=== PATIENT | male | born 1950 | race Caucasian/White ===

== ENCOUNTER → 2018-05-24 08:42 | Outpatient (REF) | payer OTHER, SELFPAY ==
[2018-05-24 20:51] LABS: Anion Gap 11.8 mmol/L (3-11); BUN 22 mg/dL (7-18); CO2 23.2 mmol/L (21.0-32.0); CREATININE 1.17 mg/dL (0.70-1.30); Calcium 8.7 mg/dL (8.5-10.1); Chloride 103 mmol/L (98-107); Glucose 166 mg/dL (70-100); Potassium 5.5 mmol/L (3.5-5.1); Sodium 138 mmol/L (136-145)
== END ==
LOC: NCHCN 08:42
PROVIDERS: PCP Nurse Practitioner Family; Visit Provider Nurse Practitioner Family
DX: E11.9 Type 2 diabetes mellitus without complications (principal); G89.4 Chronic pain syndrome; M51.36 Other intervertebral disc degeneration, lumbar region; K21.9 Gastro-esophageal reflux disease without esophagitis; R19.5 Other fecal abnormalities
CPT/HCPCS: 80048

== ENCOUNTER 2018-11-21 12:21 | Outpatient (REF) | payer OTHER, SELFPAY ==
[2018-11-21 21:41] LABS: ALT 26 U/L (12-78); AST 23 U/L (15-37); Albumin 3.6 g/dL (3.4-5.0); Alkaline Phosphatase 72 U/L (46-116); Anion Gap 13.4 mmol/L (3-11); BUN 26 mg/dL (7-18); Bilirubin, Total 0.4 mg/dL (0.2-1.0); CO2 23.6 mmol/L (21.0-32.0); Calcium 9.1 mg/dL (8.5-10.1); Chloride 103 mmol/L (98-107); Cholesterol 143 mg/dL (50-200); Glucose 170 mg/dL (70-100); HDL Cholesterol 37 mg/dL (40-60); LDL CHOLESTEROL 77 mg/dL (<100); Potassium 5.1 mmol/L (3.5-5.1); Sodium 140 mmol/L (136-145); Total Protein 6.8 g/dL (6.4-8.2); Triglyceride 131 mg/dL (30-150)
== END 2018-11-21 12:41 ==
LOC: NCHCN 12:21
PROVIDERS: PCP Nurse Practitioner Family; Visit Provider Nurse Practitioner Family
DX: E11.9 Type 2 diabetes mellitus without complications (principal); E87.5 Hyperkalemia; G89.4 Chronic pain syndrome; G25.0 Essential tremor
CPT/HCPCS: 80053; 80061; 83721

== ENCOUNTER 2019-05-09 08:26 | Outpatient (REF) | payer OTHER, SELFPAY ==
[2019-05-09 21:37] LABS: COMMENT (LAB VIEW ONLY) 146.15 mg/dL; Microalb ug/mg Crea 8.9 ug/mg Cr
== END 2019-05-09 08:46 ==
LOC: NCHCN 08:26
PROVIDERS: PCP Nurse Practitioner Family; Visit Provider Nurse Practitioner Family
DX: E11.9 Type 2 diabetes mellitus without complications (principal)
CPT/HCPCS: 82043; 82570

== ENCOUNTER 2019-10-23 09:52 | Outpatient (REF) | payer OTHER, SELFPAY ==
[2019-10-23 22:21] LABS: Anion Gap 12.5 mmol/L (3-11); BUN 20 mg/dL (7-18); CO2 23.5 mmol/L (21.0-32.0); CREATININE 1.13 mg/dL (0.70-1.30); Calcium 9.4 mg/dL (8.5-10.1); Chloride 104 mmol/L (98-107); Glucose 147 mg/dL (74-106); Magnesium 1.6 mg/dL (1.8-2.4); Potassium 5.1 mmol/L (3.5-5.1); Sodium 140 mmol/L (136-145); Vitamin B12 174 pg/mL (193-986)
== END 2019-10-23 10:12 ==
LOC: NCHCN 09:52
PROVIDERS: PCP Nurse Practitioner Family; Visit Provider Nurse Practitioner Family
DX: E11.9 Type 2 diabetes mellitus without complications (principal); I10 Essential (primary) hypertension; K21.9 Gastro-esophageal reflux disease without esophagitis; G25.0 Essential tremor; Z79.899 Other long term (current) drug therapy
CPT/HCPCS: 80048; 82607; 83735

== ENCOUNTER 2020-02-11 15:11 | Outpatient (REF) | payer OTHER, SELFPAY ==
[2020-02-11 21:11] LABS: Hemoglobin A1C 7.1 % (3.8-5.6)
[2020-02-11 21:33] LABS: Magnesium 1.8 mg/dL (1.8-2.4); Vitamin B12 616 pg/mL (193-986)
== END 2020-02-11 15:31 ==
LOC: NCHCN 15:11
PROVIDERS: PCP Nurse Practitioner Family; Visit Provider Nurse Practitioner Family
DX: E11.9 Type 2 diabetes mellitus without complications (principal); E83.42 Hypomagnesemia; E53.8 Deficiency of other specified B group vitamins
CPT/HCPCS: 82607; 83036; 83735

== ENCOUNTER 2020-05-04 21:44 | Outpatient (REF) | payer OTHER, SELFPAY ==
[2020-05-04 22:07] LABS: COMMENT (LAB VIEW ONLY) 56.44 mg/dL; Microalb ug/mg Crea 15.1 ug/mg Cr
== END 2020-05-04 22:04 ==
LOC: NCHCN 21:44
PROVIDERS: PCP Nurse Practitioner Family; Visit Provider Nurse Practitioner Family
DX: E11.9 Type 2 diabetes mellitus without complications (principal)
CPT/HCPCS: 82043; 82570

== ENCOUNTER 2020-11-08 18:27 | Outpatient (REF) | payer OTHER, SELFPAY ==
[2020-11-08 20:59] LABS: HCT 45.9 % (40.0-50.0); HGB 15.1 g/dL (13.5-17.5); MCH 31.4 pg (27.0-33.0); MCHC 32.9 % (32.0-36.0); MCV 95.4 fL (80-95); MPV 12.7 fL (8.0-11.0); Platelet Count 224 10^3/uL (130-400); RBC 4.81 10^6/uL (4.36-5.78); RDW 12.9 % (11.8-14.1); RDW-SD 45.1 fL
[2020-11-08 21:17] LABS: Anion Gap 10.4 mmol/L (3-11); BUN 22 mg/dL (7-18); CO2 24.6 mmol/L (21.0-32.0); CREATININE 1.29 mg/dL (0.70-1.30); Calcium 9.4 mg/dL (8.5-10.1); Chloride 101 mmol/L (98-107); Estimated GFR 55.06 (mL/min/1.73m2); Glucose 144 mg/dL (74-106); Potassium 4.7 mmol/L (3.5-5.1); Sodium 136 mmol/L (136-145); TSH 1.69 uIU/mL (0.36-3.74)
== END 2020-11-08 18:47 ==
LOC: NCHCN 18:27
PROVIDERS: PCP Nurse Practitioner Family; Visit Provider Nurse Practitioner Family
DX: R53.83 Other fatigue (principal); I10 Essential (primary) hypertension; E11.9 Type 2 diabetes mellitus without complications
CPT/HCPCS: 80048; 85027; 84443

== ENCOUNTER 2021-05-16 11:33 | Outpatient (REF) | payer OTHER, SELFPAY ==
[2021-05-16 16:37] LABS: COMMENT (LAB VIEW ONLY) 59.68 mg/dL; Microalb ug/mg Crea 7.2 ug/mg Cr
== END 2021-05-16 11:34 | disposition home or self-care (01) ==
LOC: NCHCN 11:33
PROVIDERS: PCP Nurse Practitioner Family; Visit Provider Nurse Practitioner Family
DX: E11.9 Type 2 diabetes mellitus without complications (principal); I10 Essential (primary) hypertension
CPT/HCPCS: 82043; 82570

== ENCOUNTER 2022-01-05 18:26 | Outpatient (REF) | payer OTHER, SELFPAY ==
[2022-01-05 15:42] LABS: Hemoglobin A1C 8.7 % (<5.7)
[2022-01-05 15:49] LABS: Anion Gap 10.7 mmol/L (3-11); BUN 22 mg/dL (7-18); CO2 23.3 mmol/L (21.0-32.0); CREATININE 1.2 mg/dL (0.70-1.30); Calcium 9.4 mg/dL (8.5-10.1); Chloride 106 mmol/L (98-107); Estimated GFR 59.68 (mL/min/1.73m2); Glucose 168 mg/dL (74-106); Potassium 5.3 mmol/L (3.5-5.1); Sodium 140 mmol/L (136-145)
== END 2022-01-05 18:27 | disposition home or self-care (01) ==
LOC: NCHCN 18:26
PROVIDERS: PCP Nurse Practitioner Family; Visit Provider Nurse Practitioner Family
DX: E11.9 Type 2 diabetes mellitus without complications (principal); I10 Essential (primary) hypertension
CPT/HCPCS: 80048; 83036

== ENCOUNTER 2022-08-21 18:25 | Outpatient (REF) | payer OTHER, SELFPAY ==
[2022-08-21 15:12] LABS: HCT 45.4 % (40.0-50.0); MCH 31.1 pg (27.0-33.0); MCV 94 fL (80-95); MPV 12.5 fL (8.0-11.0); Platelet Count 274 10^3/uL (130-400); RBC 4.83 10^6/uL (4.36-5.78); RDW 12.5 % (11.8-14.1); RDW-SD 43.2 fL; WBC 7.18 10^3/uL (4.4-10.8)
[2022-08-21 15:31] LABS: ALT 30 U/L (16-63); AST 35 U/L (15-37); Albumin 4.1 g/dL (3.4-5.0); Alkaline Phosphatase 91 U/L (46-116); Anion Gap 12.9 mmol/L (3-11); BUN 27 mg/dL (7-18); Bilirubin, Total 0.3 mg/dL (0.2-1.0); CO2 21.1 mmol/L (21.0-32.0); CREATININE 1.5 mg/dL (0.70-1.30); Calcium 9.5 mg/dL (8.5-10.1); Chloride 105 mmol/L (98-107); Estimated GFR 49.16 (mL/min/1.73m2); Glucose 120 mg/dL (74-106); Lipase 108 U/L (73-393); Potassium 5.5 mmol/L (3.5-5.1); Sodium 139 mmol/L (136-145); TSH 1.81 uIU/mL (0.36-3.74); Total Protein 7.4 g/dL (6.4-8.2)
== END 2022-08-21 18:26 | disposition home or self-care (01) ==
LOC: NCHCN 18:25
PROVIDERS: PCP Nurse Practitioner Family; Visit Provider Nurse Practitioner Family
DX: R07.9 Chest pain, unspecified (principal); R10.9 Unspecified abdominal pain
CPT/HCPCS: 80053; 83690; 85027; 84443

== ENCOUNTER 2022-10-19 16:30 | Outpatient (REF) | payer OTHER, SELFPAY ==
[2022-10-19 21:09] LABS: Anion Gap 10.1 mmol/L (3-11); BUN 26 mg/dL (7-18); CO2 22.9 mmol/L (21.0-32.0); CREATININE 1.5 mg/dL (0.70-1.30); Calcium 9.5 mg/dL (8.5-10.1); Chloride 101 mmol/L (98-107); Estimated GFR 49.16 (mL/min/1.73m2); Glucose 132 mg/dL (74-106); Potassium 5.3 mmol/L (3.5-5.1); Sodium 134 mmol/L (136-145)
== END 2022-10-19 16:31 | disposition home or self-care (01) ==
LOC: NCHCN 16:30
PROVIDERS: PCP Nurse Practitioner Family; Visit Provider Family Medicine
DX: I10 Essential (primary) hypertension (principal)
CPT/HCPCS: 80048

== ENCOUNTER 2023-03-22 09:55 | Outpatient (REF) | payer OTHER, SELFPAY ==
[2023-03-22 15:53] LABS: Hemoglobin A1C 8.6 % (<5.7)
[2023-03-22 16:17] LABS: Anion Gap 11.2 mmol/L (3-11); BUN 20 mg/dL (7-18); CO2 21.8 mmol/L (21.0-32.0); CREATININE 1.3 mg/dL (0.70-1.30); Calcium 9.6 mg/dL (8.5-10.1); Calculated LDL 119 mg/dL (<100); Chloride 104 mmol/L (98-107); Cholesterol 205 mg/dL (<200); Estimated GFR 58.01 (mL/min/1.73m2); Glucose 208 mg/dL (74-106); HDL Cholesterol 40 mg/dL (40-60); Potassium 4.7 mmol/L (3.5-5.1); Sodium 137 mmol/L (136-145); Triglyceride 231 mg/dL (<150)
[2023-03-26 11:35] LABS: Hepatitis C Ab w Rflx HCV PCR Negative (Negative)
== END 2023-03-22 09:56 | disposition home or self-care (01) ==
LOC: NCHCN 09:55
PROVIDERS: PCP Nurse Practitioner Family; Visit Provider Nurse Practitioner Family
DX: I10 Essential (primary) hypertension (principal); E11.9 Type 2 diabetes mellitus without complications; E78.5 Hyperlipidemia, unspecified; Z11.59 Encounter for screening for other viral diseases
CPT/HCPCS: 80048; 80061; 86803; 83036

== ENCOUNTER 2023-03-29 15:46 | Outpatient (REF) | payer OTHER, SELFPAY ==
[2023-03-29 15:36] LABS: COMMENT (LAB VIEW ONLY) 88.92 mg/dL; Microalb ug/mg Crea 3.8 ug/mg Cr
== END 2023-03-29 15:47 | disposition home or self-care (01) ==
LOC: NCHCN 15:46
PROVIDERS: PCP Nurse Practitioner Family; Visit Provider Nurse Practitioner Family
DX: E11.9 Type 2 diabetes mellitus without complications (principal)
CPT/HCPCS: 82043; 82570

== ENCOUNTER 2023-12-27 13:13 | Outpatient (REF) | payer OTHER, SELFPAY ==
[2023-12-27 15:29] LABS: Hemoglobin A1C 7.3 % (<5.7)
== END 2023-12-27 13:14 | disposition home or self-care (01) ==
LOC: NCHCN 13:13
PROVIDERS: PCP Nurse Practitioner Family; Referring Provider Nurse Practitioner Family; Visit Provider Nurse Practitioner Family
DX: E11.9 Type 2 diabetes mellitus without complications (principal)
CPT/HCPCS: 83036

== ENCOUNTER → 2024-05-15 11:34 | Outpatient (BNVA) | payer OTHER, SELFPAY | PROVIDERS: PCP Nurse Practitioner Family; Referring Provider Nurse Practitioner Family; Visit Provider Physical Therapy Assistant | DX: Z12.11 Encounter for screening for malignant neoplasm of colon (principal); Z86.010 Personal history of colon polyps ==

== ENCOUNTER 2024-06-06 06:03 | Day surgery (SDC) | payer OTHER, SELFPAY ==
--- NOTE | 2024-06-05 11:05 | COLE_ITS ---
Date of service: 06/06/24 Time of Service: 08:25 Colonoscopy Report Date of procedure: 06/06/24 Pre-op diagnosis general: villous adenoma of sigmoid/recto sigmoid colon oin 2020 Post-op diagnosis procedure note: other (Severe álvarez diverticula) Surgeon: Jyoti Meehan Anesthesia Type: General:No Airway Estimated blood loss (mL): 0 Pathology: none sent Complications: None Disposition: same day Prep: Miralax/Dulcolax Retraction Time: 15 Procedure Description: After informed consent was obtained, explaining risks of the procedure, including but not limits to: bleeding, infections, complications of anesthesia, perforations (which may require antibiotics and /or surgery and stay in the hospital), and abdominal pain/cramping. The patient was taken to the procedure room and placed in a left decubitous position. Monitors were applied and a time out was done. The patients name, date of , procedure, allergies to medications and metal in their body was reviewed. The patient was then sedated. Once sedated and comfortable a rectal exam was done. External exam was normal. Internal exam revealed a normal sphincter tone and no palpable masses. The prostate is enlarged The previously lubricated Olympus scope was then introduced (see RN notes for scope number) and retrofelexed. No internal hemorrhoids were identified. The scope was then advanced to the cecum without difficulty. The TI and appendiceal orifice were identified. The scope was then slowly retracted over 15 minutes back into the rectum. Polyps: no. Diverticula: pt had a large amount of large mouthed diverticula do carry all the way over to the cecum. There were no signs of active bleeding or infection. . The mucosa is pink and healthy w/ a normal vascular pattern. The scope was removed, and the patient was woken up and taken back to Same day surgery in stable condition. There is a significant amount of inspissated stool that does obscure view. Lesions less than 5 mm may not have been visualized today. Because of the severity of his diverticular disease I would not recommend any more colonoscopies. The patient tolerated the procedure well and there were no immediate complications. Follow up: The patient should does not require any further screening colonoscopies,, unless they develop changes in bowel habits or other new gastrointestinal complaints. [place] Bowel Prep [place] Bowel Prep Right Colon: 2 Left Colon: 2 Transverse Colon: 2 Total Score: 6
--- NOTE | 2024-06-05 11:09 | PDOC.DSDIS_ITS ---
Date of service: 06/06/24 Time of Service: 08:33 Discharge Plan Disposition Patient Disposition: Home Condition: Good Discharge Details Reason For Visit: Colon scope Attending Provider: Jyoti Meehan Primary Care Provider: Sunshine Kim Home Meds and New Rx's Prescriptions: Continued Invokana 300 mg tablet 300 mg PO DAILY Patient Comments: said it has been a couple of months due to cost, PCP involved lisinopril 20 mg tablet 20 mg PO DAILY lorazepam 0.5 mg tablet 0.5 mg PO DAILY PRN magnesium oxide 400 mg magnesium tablet 400 mg PO DAILY meloxicam 7.5 mg tablet 7.5 mg PO BID Patient Comments: reports hasnt taken for months due to upset stomach metformin 1,000 mg tablet 1,000 mg PO BID polyethylene glycol 3350 [Miralax] 17 gram/dose powder 17 g PO DAILY PRN mirtazapine 15 mg tablet 30 mg PO QHS omeprazole 20 mg capsule,delayed release(DR/EC) 20 mg PO BID primidone 50 mg tablet 100 mg PO BID tirzepatide 2.5 mg/0.5 mL pen injector 2.5 mg subcut QWEEK mecobalamin (vitamin B12) 1,000 mcg tablet,chewable 1,000 mcg PO DAILY Discontinued bisacodyl [Dulcolax (bisacodyl)] 5 mg tablet,delayed release (DR/EC) 5 mg PO ONCE Qty: 4 0RF Rx Instructions: Take per colonoscopy instructions provided by ordering providers office Discharge Instructions Additional Instructions: DSU Colonoscopy Post- Op Instructions Instructions for Everyone who is given Anesthesia: For your safety, please do the following for the next twenty-four (24) hours: *Do Not operate a motor vehicle (car, truck, motorcycle, etc.) *Do Not drink alcoholic beverages or use any recreational drugs for the first 24 hours or while taking pain medications. The medications in your body may have a reaction that can be dangerous. *Do Not make any important decisions or sign any important papers. Findings: Severe diverticular disease. Make sure you are moving your bowels and not straining to go to the bathroom. If you find you are having with problems with constipation or straining then it is recommended you start a daily fiber product such as Metamucil. Follow up: No more repeat colonoscopies are required 1. No lifting over 20 pounds or strenuous activity for the first 24 hours after your procedure. After 24 hours there are no restrictions on your activity but you may feel fatigued for a few days. 2. After you arrive home you may have a light meal and return to your normal diet as you can tolerate it without feeling sick to your stomach. 3. You may have a bloated, gaseous feeling in your belly (abdomen) after a colonoscopy. Passing gas and belching will help. Walking or lying down on your left side with your knees flexed may relieve the discomfort. Call the office at [phone] (Office) or [phone] (Hospital) right away if you notice any of the following: a.Vomiting of blood or ?coffee ground stools?. b.Rectal bleeding 1Tbsp, blood clots or continuous bleeding. c.Severe belly (abdominal) pain. d.A hard distended belly (abdomen) and an inability to pass gas. 4. Please don?t expect to have a normal BM (bowel movement) for 2-3 days after your procedure. 5. If there are questions regarding the findings of your procedure, please contact your doctor 6. If you are unable to contact your doctor with a problem, contact the hospital at [phone]. 7. Continue all your regular medications unless directed otherwise. I understand the above instructions and have no questions. Signature of Patient or Adult Escort Name of Responsible Adult Escort Signature of Nurse Date/Time Activity:: see above Diet:: see above Discharge Orders Discharge Orders: Discharge Order (Routine); Ordered 06/06/24 Ordered By: Jyoti Meehan DS: Diagnosis Discharge Diagnosis (1) Villous adenoma of left colon: Status: Acute (2) COPD (chronic obstructive pulmonary disease): Status: Chronic (3) Essential hypertension: (4) HLD (hyperlipidemia): (5) Type 2 diabetes mellitus: (6) Glaucoma: (7) GERD (gastroesophageal reflux disease): (8) Constipation: (9) Hemorrhoids: (10) Tubulovillous adenoma: Asessment and Plan: The patient is seen and examined after their colonoscopy.? The patient has been able to pass gas.? They are not having abdominal pain.? They have been able to tolerate liquids and a snack.? They do not have any nausea or vomiting.? They are not having any chest pain or shortness of breath.??? They are not having any rectal bleeding. Their vital signs have been stable-see nursing notes. We discussed findings during their colonoscopy, and any biopsies that were done/polyps that were removed. The patient will be sent a letter with any biopsy results, and when to repeat the colonoscopy.-see discharge instructions. Patient was given explicit instructions to follow-up regarding colonoscopy-refer to discharge instructions.? We reviewed resumption of medications. Patient verbalized understanding and discharged in stable and satisfactory condition- See nursing notes. (11) Diverticular disease of large intestine: Status: Acute (12) Pancolonic diverticulosis: Status: Acute
--- NOTE | 2024-06-06 05:51 | ANES.PREOP_ITS ---
General Info Date of Service Date Performed: 06/06/24 Height: 5 ft 9 in Weight: 88.451 kg Body Mass Index (BMI): 28.8 Surgical Procedure: Operation Date: 06/06/24 07:35 Proposed Procedure Side Surgeon pamela Meehan, DO Meds Allergies and Home Medications Allergies Allergy/AdvReac Type Severity Reaction Status Date / Time No Known Allergies Allergy Verified 06/06/24 06:35 Home Medication ?Medication ?Instructions ?Recorded canagliflozin 300 mg tablet 300 mg PO DAILY 05/15/24 (Invokana) lisinopril 20 mg tablet 20 mg PO DAILY 05/15/24 lorazepam 0.5 mg tablet 0.5 mg PO DAILY PRN 05/15/24 magnesium oxide 400 mg PO DAILY 05/15/24 mecobalamin (vitamin B12) 1,000 1,000 mcg PO DAILY 05/15/24 mcg chewable tablet meloxicam 7.5 mg tablet 7.5 mg PO BID 05/15/24 metformin 1,000 mg tablet 1,000 mg PO BID 05/15/24 mirtazapine 15 mg tablet 30 mg PO QHS 05/15/24 omeprazole 20 mg capsule,delayed 20 mg PO BID 05/15/24 release polyethylene glycol 3350 17 17 g PO DAILY PRN 05/15/24 gram/dose oral powder (Miralax) primidone 50 mg tablet 100 mg PO BID 05/15/24 tirzepatide 2.5 mg/0.5 mL 2.5 mg subcut QWEEK 05/15/24 subcutaneous pen injector Current Visit Medications: Current Medications Generic Name Dose Route Start Last Admin Trade Name Manuelq PRN Reason Stop Dose Admin Hyoscyamine Sulfate 0.125 mg 06/06/24 11:04 Hyoscyamine 0.125 Mg Sl/Oral/Chew SL 07/06/24 11:03 DIRECTED PRN Ringer's Solution 1,000 mls @ 80 mls/hr 06/06/24 06:00 IV 06/06/24 23:59 [facility] IV Miscellaneous Supplies 1 each 06/06/24 06:00 Iv Access IV 06/06/24 23:59 DIRECTED LENNIE Ondansetron HCl 4 mg 06/06/24 11:04 Ondansetron 4 Mg/2 Ml Vial IVP 07/06/24 11:03 Q4H PRN PRN Nausea / Vomiting Sodium Chloride 0 ml 06/06/24 06:00 Normal Saline Flush 10 Ml Syr IV 06/06/24 23:59 PRN PRN Sodium Chloride 0 ml 06/06/24 06:00 Normal Saline 10 Ml Vial IJ 06/06/24 23:59 DIRECTED PRN Sterile Water 0 ml 06/06/24 06:00 Water,Injection,Sterile 10 Ml Vial IJ 06/06/24 23:59 DIRECTED PRN PFSH Active Problems Active Problems: Problem Status Onset Code Villous adenoma of left colon Acute D37.4 COPD (chronic obstructive pulmonary disease) Chronic J44.9 Medical History Medical History (Updated 06/06/24 @ 06:42 by Natasha Garcia) History of hand fracture Hx of fracture of leg Hx of fracture of arm Tubulovillous adenoma (~02/22/21) Tubular adenoma of colon (~02/22/21) X3 Dysthymia Disorder of optic nerve Hemorrhoids Essential tremor Essential hypertension HLD (hyperlipidemia) Cervical radiculopathy Vitamin B deficiency Chronic pain syndrome Type 2 diabetes mellitus Chest pain normal stress test 2015 EF 56% GERD (gastroesophageal reflux disease) Degeneration of lumbar intervertebral disc Idiopathic osteoarthritis Glaucoma Dupuytren's disease Actinic keratosis Hypomagnesemia Pain in right acromioclavicular joint Constipation Aneurysm artery, iliac Lung nodule Pain in left foot Surgical History Surgical History (Updated 06/06/24 @ 06:42 by Natasha Garcia) Hx of facial fracture repair History of colonoscopy Tobacco Smoking/Tobacco Use Status: Former Tobacco Use Alcohol Alcohol Intake: never Substance Use Substance use: Never Substance use type: does not use Vital Signs and Lab Results Vital Signs Most Recent Vital Signs in EMR: Temp Pulse Resp BP Pulse Ox 36.5 C 72 16 141/104 H 96 06/06/24 06:29 06/06/24 06:29 06/06/24 06:29 06/06/24 06:29 06/06/24 06:29 Lab Results 06/06/24 06:50 Blood Type / Crossmatch: 2 No Data to Display Complete Blood Count: 2 No Data to Display Complete Metabolic Panel: 2 Sodium 136 mmol/L (136-145) 06/06/24 06:50 Potassium 3.8 mmol/L (3.5-5.1) 06/06/24 06:50 Chloride 101 mmol/L (98-107) 06/06/24 06:50 Carbon Dioxide 24.6 mmol/L (21.0-32.0) 06/06/24 06:50 BUN 15 mg/dL (7-18) 06/06/24 06:50 Creatinine 1.2 mg/dL (0.70-1.30) 06/06/24 06:50 Est GFR (CKD-EPI 2020) 63.46 (mL/min/1.73m2) 06/06/24 06:50 Calcium 8.5 mg/dL (8.5-10.1) 06/06/24 06:50 Glucose 210 mg/dL (74-106) H 06/06/24 06:50 Liver Function Panel: 2 No Data to Display Coagulation Panel: 2 No Data to Display Cardiac Panel: 2 No Data to Display Arterial Blood Gas: 2 No Data to Display Venous Blood Gas: 2 No Data to Display Pancreas Panel: 2 No Data to Display Thyroid Panel: 2 No Data to Display Infectious Disease: 2 No Data to Display Blood Cultures: 2 No Data to Display Toxicology Panel: 2 No Data to Display Anesthesia Assessment and Plan Anesthesia History Personal History: No History of Anesthesia Complications Family History: No Family History of Anesthesia Complications Exercise Tolerance Exercise Tolerance: Metabolic Equivalents>4 Pertinent Negatives Pertinent Negatives: No Symptoms of GERD, No Major Cardiovascular Symptoms or Complaints and No Major Pulmonary Symptoms or Complaints Cardiac & Pulmonary Exam Cardiac Exam: Normal S1/S2 Heart Sounds Pulmonary Exam: Clear Bilateral Breath Sounds Implantable Cardiac Device Does patient have a Pacemaker or an ICD?: No Airway Exam Known Difficult Airway: No Mallampati Class: 3 Mouth Opening: Normal (> 3cm) Thyromental Distance: Greater than 3 cm Neck Range of Motion: Full ROM Neck Circumference: Normal Teeth Condition: Generalized Poor Dentition (only 2 teeth right lower, not loose per pt) ASA Classification ASA Score: ASA 3 Emergency Case?: No NPO Status NPO Status: NPO Clears >2 hours, Solids >8 hours Anesthesia Plan Resuscitation Status: Full Code Anesthesia Technique: General Anesthesia Airway Planned: Natural Airway Monitors Used: Standard Monitors Preoperative Comments:: 74 y/o male with history of type 2 DM, asthma, HLD, presents for colonoscopy screening. His last screening was in 2020 and was tubular adenomatous polyps x 3 and a tubulovillous adenoma. Usual tremor is a bit more pronounced today, c/o headache 7/10. Toradol 15mg IV given at 0710. IV fluids increased. CMP ok, headache improving after Toradol.
[2024-06-06 06:29] VITALS: BP 141/104; PULSE 72; RESP 16; TEMP 36.5; O2SAT 96
[2024-06-06] MEDS: Lactated Ringers 1,000 ML 80 ML IV (06:50)
[2024-06-06 07:04] VITALS: BMI 28.8
[2024-06-06 07:17] LABS: Anion Gap 10.4 mmol/L (3-11); BUN 15 mg/dL (7-18); CO2 24.6 mmol/L (21.0-32.0); CREATININE 1.2 mg/dL (0.70-1.30); Calcium 8.5 mg/dL (8.5-10.1); Chloride 101 mmol/L (98-107); Estimated GFR 63.46 (mL/min/1.73m2); Glucose 210 mg/dL (74-106); Potassium 3.8 mmol/L (3.5-5.1); Sodium 136 mmol/L (136-145)
[2024-06-06 08:21] VITALS: BP 107/73; PULSE 66; RESP 16; TEMP 36.4; O2SAT 96
--- NOTE | 2024-06-06 08:47 | W.ANESPOSTOP ---
Postoperative Evaluation Date, Time and Location Date Performed: 06/06/24 Time Performed: 08:32 Patient Location: Day Surgery Unit Vital Signs Most Recent Imported Vital Signs: Most Recent Vital Signs Temp Pulse Resp BP Pulse Ox 36.4 C L 66 16 107/73 96 06/06/24 08:21 06/06/24 08:21 06/06/24 08:21 06/06/24 08:21 06/06/24 08:21 Pain Score Most Recent Pain Score: Most Recent Pain Score Pain Level 0 06/06/24 08:21 Assessment Mental Status: Awake (Alert & Oriented to Patient Baseline) Airway and Respiratory Function: Patent airway with normal (patient baseline) respiratory exam Cardiovascular Function: Hemodynamically Stable Hydration Status: Adequately Hydrated Nausea & Vomiting: No Nausea or Vomiting Pain: Pt. Denies Any Pain Peripheral Nerve Block: Patient did not receive a nerve block
[2024-06-06 08:54] VITALS: BP 134/84; PULSE 65; RESP 16; TEMP 36.6; O2SAT 95
== END 2024-06-06 09:17 | disposition home or self-care (01) ==
PROVIDERS: Nurse Anesthetist, Certified Registered; PCP Nurse Practitioner Family; Visit Provider Surgery
PROC: 0DJD8ZZ Inspection of Lower Intestinal Tract, Via Natural or Artificial Opening Endoscopic (ICD-10-PCS; CPT 45378; principal; 2024-06-06 07:30)
DX: Z12.11 Encounter for screening for malignant neoplasm of colon (principal); K57.30 Diverticulosis of large intestine without perforation or abscess without bleeding
CPT/HCPCS: G0105; 36415; 80048; J1885; J2001; J2371; J2704

== ENCOUNTER 2024-06-30 15:03 | Outpatient (REF) | payer OTHER, SELFPAY ==
[2024-06-30 15:49] LABS: HCT 46.1 % (40.0-50.0); HGB 15.2 g/dL (13.5-17.5); MCH 30.7 pg (27.0-33.0); MCV 93 fL (80-95); MPV 12.7 fL (8.0-11.0); Platelet Count 264 10^3/uL (130-400); RBC 4.95 10^6/uL (4.36-5.78); RDW 13.6 % (11.8-14.1); RDW-SD 46.1 fL; WBC 7.62 10^3/uL (4.4-10.8)
[2024-06-30 16:09] LABS: ALT 28 U/L (16-63); AST 33 U/L (15-37); Albumin 3.9 g/dL (3.4-5.0); Alkaline Phosphatase 123 U/L (46-116); Anion Gap 11.1 mmol/L (3-11); BUN 18 mg/dL (7-18); Bilirubin, Total 0.41 mg/dL (0.2-1.0); CO2 24.9 mmol/L (21.0-32.0); CREATININE 1.2 mg/dL (0.70-1.30); Calcium 9.4 mg/dL (8.5-10.1); Calculated LDL 88 mg/dL (<100); Chloride 103 mmol/L (98-107); Cholesterol 171 mg/dL (<200); Estimated GFR 63.46 (mL/min/1.73m2); Glucose 195 mg/dL (74-106); HDL Cholesterol 47 mg/dL (40-60); Potassium 5.1 mmol/L (3.5-5.1); Sodium 139 mmol/L (136-145); Total Protein 7.5 g/dL (6.4-8.2); Triglyceride 180 mg/dL (<150)
[2024-06-30 16:17] LABS: Hemoglobin A1C 7.9 % (<5.7)
== END 2024-06-30 15:04 | disposition home or self-care (01) ==
LOC: NCHCN 15:03
PROVIDERS: PCP Nurse Practitioner Family; Visit Provider Nurse Practitioner Family
DX: I10 Essential (primary) hypertension (principal); E11.9 Type 2 diabetes mellitus without complications
CPT/HCPCS: 80053; 80061; 85027; 83036

== ENCOUNTER 2024-07-31 10:02 | Emergency (ER) | payer OTHER, SELFPAY ==
[2024-07-31] VITALS (13 sets, daily range): BP systolic 85–132; BP diastolic 49–77; PULSE 75–87; RESP 11–20; TEMP 36.2–36.3; O2SAT 94–97
--- NOTE | 2024-07-31 10:15 | RT.EKG_ITS ---
APPROVED REPORT Exam: Resting ECG Reason for Exam: hypotension, back pain Patient Location: E HR:78 bpm ECG Measurements Heart Rate 78 AXIS MD 258 P -41 QRSd 96 QRS 43 QT 387 T 45 QTc 440 Conclusion Sinus rhythm...normal P axis, V-rate 60- 99 Prolonged MD interval...MD >220, V-rate 50- 90 Narrow complex normal sinus rhythm at a rate of 78. Normal axis. First-degree AV block MD interval 258 ms. QTc within normal limits. T wave flattening in lead III. No prior for comparison. No acut e injury pattern.
[2024-07-31] MEDS: ACETAMINOPHEN 1,000 MG/100 ML BTL 400 MG IVPB (11:04)
[2024-07-31] MEDS: oxyCODONE 5 MG TAB PO (11:05)
--- NOTE | 2024-07-31 11:06 | W.ED.GENAD ---
Discharge Plan Disposition Patient Disposition: Home Condition: Stable Discharge Details Clinical Impression: Back pain Primary Care Provider: Sunshine Kim ED Provider: Marisel Delarosa Home Meds and New Rx's Prescriptions: New prednisone 20 mg tablet 40 mg PO DAILY Qty: 10 0RF Continued Invokana 300 mg tablet 300 mg PO DAILY Patient Comments: said it has been a couple of months due to cost, PCP involved lisinopril 20 mg tablet 20 mg PO DAILY lorazepam 0.5 mg tablet 0.5 mg PO DAILY PRN magnesium oxide 400 mg magnesium tablet 400 mg PO DAILY meloxicam 7.5 mg tablet 7.5 mg PO BID Patient Comments: reports hasnt taken for months due to upset stomach metformin 1,000 mg tablet 1,000 mg PO BID polyethylene glycol 3350 [Miralax] 17 gram/dose powder 17 g PO DAILY PRN mirtazapine 15 mg tablet 30 mg PO QHS omeprazole 20 mg capsule,delayed release(DR/EC) 20 mg PO BID primidone 50 mg tablet 100 mg PO BID tirzepatide 2.5 mg/0.5 mL pen injector 2.5 mg subcut QWEEK mecobalamin (vitamin B12) 1,000 mcg tablet,chewable 1,000 mcg PO DAILY Discharge Instructions Instructions: Low Back Pain ED Additional Instructions: Follow-up with physical therapy and listing a referral Take the prednisone as prescribed Tylenol 650 every 6 hours as needed for pain May apply Voltaren or diclofenac gel which is [id number] in the area of discomfort May buy [id number] Lidoderm patches 4% and apply them over the area of discomfort Light stretching Please return should you have strength or sensation change, fever chills, changes in bowel or bladder, or any new or worsening complaints recheck your blood pressure with your primary care physician tomorrow, skip your dose of morning blood pressure medication and make sure you are drinking at least eight 8 ounce glasses of water daily. Stand Alone Forms: Physical Therapy Referral Referrals: Sunshine Kim [Primary Care Provider] - 1 day Discharge Data Discharge Date/Time-TO BE ENTERED AT DEPARTURE: 07/31/24 12:52 HPI General Date/Time Provider Initiated Documentation: 07/31/24 10:17. HPI Narrative: This 74-year-old male with history of COPD hypertension, diabetes, seizures, presents with report of back pain for the past 4 to 5 weeks. He denies any prior history of back pain and has been going to a chiropractor for intervention per patient. Denies changes in bowel or bladder, illicit drug use, strength or sensation change. Denies any groin numbness or tingling. States the pain is worsened with walking and movement. Denies any chest pain or shortness of breath. Denies any abdominal pain, nausea or vomiting. Denies history of cancer. Related Data Home Medications ?Medication ?Instructions ?Recorded ?Confirmed canagliflozin 300 mg tablet 300 mg PO DAILY 05/15/24 07/31/24 (Invokana) lisinopril 20 mg tablet 20 mg PO DAILY 05/15/24 07/31/24 lorazepam 0.5 mg tablet 0.5 mg PO DAILY PRN 05/15/24 07/31/24 magnesium oxide 400 mg PO DAILY 05/15/24 07/31/24 mecobalamin (vitamin B12) 1,000 1,000 mcg PO DAILY 05/15/24 07/31/24 mcg chewable tablet meloxicam 7.5 mg tablet 7.5 mg PO BID 05/15/24 07/31/24 metformin 1,000 mg tablet 1,000 mg PO BID 05/15/24 07/31/24 mirtazapine 15 mg tablet 30 mg PO QHS 05/15/24 07/31/24 omeprazole 20 mg capsule,delayed 20 mg PO BID 05/15/24 07/31/24 release polyethylene glycol 3350 17 17 g PO DAILY PRN 05/15/24 07/31/24 gram/dose oral powder (Miralax) primidone 50 mg tablet 100 mg PO BID 05/15/24 07/31/24 tirzepatide 2.5 mg/0.5 mL 2.5 mg subcut QWEEK 05/15/24 07/31/24 subcutaneous pen injector prednisone 20 mg tablet 40 mg (2 x 20 mg) PO DAILY #10 tabs 07/31/24 Previous Rx's ?Medication ?Instructions ?Recorded prednisone 20 mg tablet 40 mg (2 x 20 mg) PO DAILY #10 tabs 07/31/24 Allergies Allergy/AdvReac Type Severity Reaction Status Date / Time No Known Allergies Allergy Verified 07/31/24 10:08 General Stated Complaint: Nk/Back Pain VINCENZO: 3 Exam Narrative Exam Narrative: Alert and oriented 74-year-old male in no acute distress, pupils are equal, lungs clear to auscultation, cardiac rate rhythm regular, distal pulses intact, no abdominal tenderness or pulsatile mass, no CVA tenderness, tenderness with palpation along lumbar spine paraspinally and flank, alert and oriented x 4, strength and sensation intact distally Course Vital Signs Vital signs: Vital Signs Temperature 36.2 C L 07/31/24 10:03 Pulse 82 07/31/24 10:03 Respiratory Rate 16 07/31/24 10:03 Blood Pressure 116/76 07/31/24 10:03 Pulse Oximetry 94 07/31/24 10:03 Temperature 36.3 C L 07/31/24 10:19 Pulse 79 07/31/24 10:53 Pulse 81 07/31/24 10:53 Respiratory Rate 16 07/31/24 10:53 Blood Pressure 85/58 L 07/31/24 10:53 Blood Pressure Mean 66 07/31/24 10:53 Pulse Oximetry 96 07/31/24 10:53 Oxygen Delivery Method Room Air 07/31/24 10:19 Oxygen Flow Rate 0 07/31/24 10:19 Pain Level 6 07/31/24 10:03 Medical Decision Making 74-year-old male presenting with back pain for the past 4 to 5 weeks, getting worse despite going to chiropractor. Has not been evaluated by his primary care physician reportedly. Incidentally patient's blood pressure was found to be on the low end of normal in triage and therefore additional assessment was performed. Did order CT abdomen and pelvis and lumbar spine to evaluate for back pain potential etiology of hypotension. Patient was found to have normal-appearing blood work with an ever so slight decrease in his hemoglobin but no self-reported blood in stool. Patient was given breakfast and fluids and his blood pressure was 117/70 at time of discharge home. No supplemental fluid was administered during this stay and patient was encouraged to have his blood pressure rechecked by his primary care physician prior to taking his lisinopril tomorrow. Placed on prednisone for pain. Return precautions reviewed and patient expressed understanding. No clinical findings consistent with cauda equina syndrome and clinically low suspicion for discitis or epidural abscess. Quality:SDOH Health Related Social Needs: No Data to Display PFSH All Active Problems (Updated 07/31/24 @ 12:33 by HARPER Muñoz) Back pain (Acute) Pancolonic diverticulosis (Acute) Diverticular disease of large intestine (Acute) Severe PAV diverticular disease Villous adenoma of left colon (Acute) COPD (chronic obstructive pulmonary disease) (Chronic) Medical History (Updated 07/31/24 @ 12:33 by HARPER Muñoz) History of hand fracture Hx of fracture of leg Hx of fracture of arm Tubulovillous adenoma (~02/22/21) Tubular adenoma of colon (~02/22/21) X3 Dysthymia Disorder of optic nerve Hemorrhoids Essential tremor Essential hypertension HLD (hyperlipidemia) Cervical radiculopathy Vitamin B deficiency Chronic pain syndrome Type 2 diabetes mellitus Chest pain normal stress test 2015 EF 56% GERD (gastroesophageal reflux disease) Degeneration of lumbar intervertebral disc Idiopathic osteoarthritis Glaucoma Dupuytren's disease Actinic keratosis Hypomagnesemia Pain in right acromioclavicular joint Constipation Aneurysm artery, iliac Lung nodule Pain in left foot Surgical History (Updated 06/09/24 @ 08:31 by Mini Leonardo) Hx of facial fracture repair History of colonoscopy (~05/2024) Social History Smoking/Tobacco Use Status: Former Tobacco Use Quit Date: 10/15/98 Smoking risk assessment performed?: Yes Alcohol Intake: never Drug use: Never Substance use type: does not use Housing: house Do you feel safe at home: Yes Do you feel safe in your relationship?: Yes Additional Social history: [facility]
[2024-07-31 11:24] LABS: Abs Immature Grans 0.05 10^3/uL (0.0-0.06); Absolute Basophil Count 0.09 10^3/uL (0.0-0.2); Absolute Eosinophil Count 0.29 10^3/uL (0.0-0.7); Absolute Lymphocyte Count 1.19 10^3/uL (1.2-3.4); Absolute Monocyte Count 0.63 10^3/uL (0.1-0.8); Absolute Neutrophil Count 4.97 10^3/uL (1.2-6.7); Basophils % 1.2 %; HGB 11.8 g/dL (13.5-17.5); Immature Grans % 0.7 %; Lymphocytes % 16.5 %; MCH 31.2 pg (27.0-33.0); MCHC 33.7 % (32.0-36.0); MCV 93 fL (80-95); Monocytes % 8.7 %; Neutrophils % 68.9 %; Platelet Count 238 10^3/uL (130-400); RBC 3.78 10^6/uL (4.36-5.78); RDW 13.6 % (11.8-14.1); RDW-SD 46.2 fL; WBC 7.22 10^3/uL (4.4-10.8)
[2024-07-31] MEDS: Omnipaque 350 MG/ML 100 ML BTL IJ (11:30)
--- NOTE | 2024-07-31 11:30 | DI.CT_ITS ---
Exam(s) CT LUMBAR SPINE RECONS CT ABDOMEN PELVIS W EXAM: CT ABDOMEN PELVIS W and CT lumbar spine recons CLINICAL HISTORY: flank pain, hypotension TECHNIQUE: Imaging Protocol: Axial computed tomography images with coronal and sagittal reformatted images were created and reviewed. CONTRAST MATERIAL: Intravenous: Omnipaque 350 Contrast volume:100 mL Oral: No COMPARISON: CT CT LUMBAR SPINE RECONS from 07/31/2024 FINDINGS: ABDOMEN: Lung Bases: Normal where visualized. Liver: Normal density. No measurable mass. Portal, Superior Mesenteric, and Splenic Veins: Unremarkable. Gallbladder and Biliary Tract: Gallstones are present. There is no biliary ductal dilatation. Pancreas: Normal density, no abnormal calcifications or inflammatory process. Spleen: Normal. Adrenals: No masses seen. Kidneys: Normal size, contour and axis. No radiodense stones or obstructive uropathy. There is a 1.6 cm simple cyst in the left kidney. No follow-up is recommended. Abdominal Aorta: Abdominal portion non-dilated. Extensive atherosclerotic calcification is present. 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 Bowel: There is diverticulosis seen in the colon without evidence of acute diverticulitis. There is no evidence of bowel obstruction or bowel wall thickening. Appendix is unremarkable. Peritoneal Cavity: No ascites, collection or mesenteric inflammatory response. No free air. Lymph Nodes: Within normal limits. Bones: Within normal limits for the patient's age. Degenerative changes are seen in the hips bilater ally, right greater than left. Soft Tissues: There is a small fat containing right inguinal hernia. Lumbar spine CT recons: Age-appropriate degenerative changes are present. No acute fracture or sublu xation is present. No aggressive osseous lesions are seen. There is unilateral right L5 spondylolys is without spondylolisthesis. There is a chronic appearing compression deformity of L1. No large di sc herniations are present. No significant central spinal canal stenosis is seen. PELVIS: Bladder: Symmetric distention, no gross wall thickening. Reproductive Organs: Unremarkable as visualized. Lymph Nodes: Within normal limits. Bones: Within normal limits for the patient's age. IMPRESSION: 1. No evidence of nephrolithiasis or hydronephrosis. 2. Multilevel degenerative changes in the lumbar spine. No significant central spinal canal stenosis or large disc herniations are present. 3. Cholelithiasis. No findings of acute cholecystitis or biliary ductal dilatation. 4. No acute fracture or subluxation in the lumbar spine. 5. Colonic diverticulosis without evidence of acute diverticulitis. RADIATION DOSE DELIVERED: 338.46mGy.cm Total DLP DATA REPOSITORY: All CT scans at this facility are submitted to the National Radiology Data Registry (NRDR) Dose Index Registry (DIR) with the [employer] ([employer]). RADIATION OPTIMIZATION: All CT scans at this facility use at least one of these dose optimization te chniques: automated exposure control; mA and/or kV adjustment per patient size (includes targeted exa ms where dose is matched to clinical indication); or iterative reconstruction.
[2024-07-31] MEDS: Normal Saline - Diluent 50 ML VIAL IJ (11:33)
[2024-07-31 11:49] LABS: ALT 22 U/L (16-63); AST 13 U/L (15-37); Albumin 3.2 g/dL (3.4-5.0); Alkaline Phosphatase 106 U/L (46-116); Anion Gap 10.1 mmol/L (3-11); BUN 25 mg/dL (7-18); Bilirubin, Total 0.25 mg/dL (0.2-1.0); CO2 21.9 mmol/L (21.0-32.0); CREATININE 1.3 mg/dL (0.70-1.30); Calcium 8.7 mg/dL (8.5-10.1); Chloride 108 mmol/L (98-107); Estimated GFR 57.65 (mL/min/1.73m2); Glucose 145 mg/dL (74-106); Lipase 39 U/L (16-77); Sodium 140 mmol/L (136-145); Total Protein 6.5 g/dL (6.4-8.2)
[2024-07-31 11:53] LABS: C-Reactive Protein < 0.50 mg/dL (<or=0.5)
[2024-07-31 13:11] LABS: Bilirubin Negative (Negative); Blood Negative (Negative); Clarity Clear (Clear); Glucose 500 mg/dL (Negative); Ketones Negative (Negative); Leukocyte Esterase Negative (Negative); Nitrite Negative (Negative); Urobilinogen 0.2 mg/dL (Up to 0.2)
== END 2024-07-31 12:52 | disposition home or self-care (01) ==
PROVIDERS: Emergency Provider Physician Assistant; PCP Nurse Practitioner Family
DX: M54.50 Low back pain, unspecified (principal); E11.69 Type 2 diabetes mellitus with other specified complication; J44.9 Chronic obstructive pulmonary disease, unspecified; F17.200 Nicotine dependence, unspecified, uncomplicated
CPT/HCPCS: 80053; 83690; 93005; 96374; 99285; 74177; 81003; 85025; 86140; 93010; 99284; J0131; J3490

== ENCOUNTER 2024-09-25 11:49 | Outpatient (REF) | payer OTHER, SELFPAY ==
[2024-09-25 14:35] LABS: HCT 45.1 % (40.0-50.0); HGB 15.2 g/dL (13.5-17.5); MCH 30.8 pg (27.0-33.0); MCHC 33.7 % (32.0-36.0); MCV 92 fL (80-95); MPV 12.8 fL (8.0-11.0); Platelet Count 330 10^3/uL (130-400); RBC 4.93 10^6/uL (4.36-5.78); RDW 13.3 % (11.8-14.1); WBC 7.47 10^3/uL (4.4-10.8)
[2024-09-25 14:50] LABS: Hemoglobin A1C 7.3 % (<5.7)
[2024-09-25 15:01] LABS: ALT 20 U/L (16-63); AST 30 U/L (15-37); Albumin 3.7 g/dL (3.4-5.0); Alkaline Phosphatase 111 U/L (46-116); Anion Gap 13.9 mmol/L (3-11); BUN 22 mg/dL (7-18); Bilirubin, Total 0.34 mg/dL (0.2-1.0); CO2 21.1 mmol/L (21.0-32.0); CREATININE 1.3 mg/dL (0.70-1.30); Calcium 9.4 mg/dL (8.5-10.1); Calculated LDL 85 mg/dL (<100); Chloride 108 mmol/L (98-107); Cholesterol 168 mg/dL (<200); Estimated GFR 57.65 (mL/min/1.73m2); Glucose 133 mg/dL (74-106); HDL Cholesterol 48 mg/dL (40-60); Magnesium 1.4 mg/dL (1.8-2.4); Potassium 5.2 mmol/L (3.5-5.1); Sodium 143 mmol/L (136-145); TSH 1.98 uIU/mL (0.36-3.74); Total Protein 7.4 g/dL (6.4-8.2); Triglyceride 175 mg/dL (<150)
[2024-09-25 15:30] LABS: COMMENT (LAB VIEW ONLY) 98.21 mg/dL; Microalb ug/mg Crea 10.9 ug/mg Cr
== END 2024-09-25 11:50 | disposition home or self-care (01) ==
LOC: NCHCN 11:49
PROVIDERS: PCP Nurse Practitioner Family; Visit Provider Nurse Practitioner Family
DX: I10 Essential (primary) hypertension (principal); E11.9 Type 2 diabetes mellitus without complications
CPT/HCPCS: 80053; 80061; 85027; 82043; 82570; 83036; 83735; 84443

== ENCOUNTER 2025-07-27 15:01 | Outpatient (REF) | payer MEDICARE, SELFPAY ==
[2025-07-27 15:43] LABS: HCT 48.4 % (40.0-50.0); HGB 16.0 g/dL (13.5-17.5); MCH 29.9 pg (27.0-33.0); MCHC 33.1 % (32.0-36.0); MCV 90 fL (80-95); MPV 12.7 fL (8.0-11.0); Platelet Count 258 10^3/uL (130-400); RBC 5.36 10^6/uL (4.36-5.78); RDW 13.8 % (11.8-14.1); RDW-SD 46.5 fL; WBC 6.88 10^3/uL (4.4-10.8)
[2025-07-27 16:07] LABS: ALT 30 U/L (16-63); AST 27 U/L (15-37); Albumin 3.9 g/dL (3.4-5.0); Alkaline Phosphatase 146 U/L (46-116); Anion Gap 10.2 mmol/L (3-11); BUN 16 mg/dL (7-18); Bilirubin, Total 0.4 mg/dL (0.2-1.0); CO2 26.8 mmol/L (21.0-32.0); Calcium 9.5 mg/dL (8.5-10.1); Chloride 105 mmol/L (98-107); Estimated GFR 57.29 (mL/min/1.73m2); Glucose 194 mg/dL (74-106); Magnesium 1.9 mg/dL (1.8-2.4); Potassium 5.1 mmol/L (3.5-5.1); Sodium 142 mmol/L (136-145); Total Protein 6.7 g/dL (6.4-8.2)
[2025-07-27 16:28] LABS: Hemoglobin A1C 8.1 % (<5.7)
== END 2025-07-27 15:02 | disposition home or self-care (01) ==
LOC: NCHCN 15:01
PROVIDERS: PCP Nurse Practitioner Family; Visit Provider Nurse Practitioner Family
DX: E11.9 Type 2 diabetes mellitus without complications (principal); E83.42 Hypomagnesemia
CPT/HCPCS: 80053; 85027; 83036; 83735

== ENCOUNTER 2025-08-03 16:12 | Outpatient (REF) | payer MEDICARE, SELFPAY ==
[2025-08-03 17:52] LABS: COMMENT (LAB VIEW ONLY) 62.74 mg/dL; Microalb ug/mg Crea 11.5 ug/mg Cr
== END 2025-08-03 16:13 | disposition home or self-care (01) ==
LOC: NCHCN 16:12
PROVIDERS: PCP Nurse Practitioner Family; Visit Provider Nurse Practitioner Family
DX: E11.9 Type 2 diabetes mellitus without complications (principal)
CPT/HCPCS: 82043; 82570